=== PATIENT | female | born 1985 | race African-American/Black ===

== ENCOUNTER 2016-08-10 09:31 | Emergency (ER) | payer MEDICAID ==
[2016-08-10] MEDS ORDERED: ONDANSETRON 4 MG/2 ML VIAL IVP ONE (10:27)
[2016-08-10] MEDS ORDERED: NS 1,000 ML IV ONE (10:27)
[2016-08-10 10:36] VITALS: O2SAT 100
[2016-08-10 10:46] LABS: % IMMATURE GRANULYOCYTES 0.6 % (0.0-1.1); ABSOLUTE IMMATURE GRANULOCYTES 0.07 10^3/uL (0.00-0.10); ADD DIFF? NO; ADD MORPH? NO; ADD SCAN? NO; ATYPICAL LYMPHOCYTE FLAG 10 (0-99); FRAGMENT RBC FLAG 40 (0-99); HEMATOCRIT 30.6 % (38.0-47.0); HEMOGLOBIN 9.9 g/dL (12.6-16.3); LEFT SHIFT FLG 0 (0-99); LIPEMIA HEMOLYSIS FLAG 80 (0-99); MEAN CELL HEMOGLOBIN 23.2 pg (27.9-34.1); MEAN CELL HEMOGLOBIN CONCENTR. 32.4 g/dL (32.4-36.7); MEAN CELL VOLUME 71.7 fL (81.5-99.8); PLATELET CLUMPS FLAG 0 (0-99); PLATELET COUNT 325 10^3/uL (150-400); RED BLOOD CELL COUNT 4.27 10^6/uL (4.18-5.33); RED CELL DISTRIBUTION WIDTH 19.5 % (11.5-15.2)
--- NOTE | 2016-08-10 10:57 | EDPHY ---
H & P Time Seen by Provider: 08/10/16 10:15 HPI/ROS: CHIEF COMPLAINT: "I think I am having a sickle cell crisis and UTI" HISTORY OF PRESENT ILLNESS: The patient is a 31-year-old female with a history of sickle cell trait who presents to the emergency department stating she is in a crisis. She describes diffuse body aches and chills. She has increased frequency but no dysuria or hematuria. She denies abdominal pain. No nausea or vomiting. No fever. No back pain. No shortness of breath or chest pain. Patient has no leg pain or swelling. She states this is typical of her previous episodes. REVIEW OF SYSTEMS: My complete review of systems is negative except as mentioned in the HPI. Past Medical/Surgical History: Includes sickle cell trait Past surgical history: Negative Social history: The patient does not smoke use alcohol. Smoking Status: Current every day smoker Physical Exam: Vitals noted GENERAL: Well-appearing, in no acute distress, alert. HEENT: Eyes normal to inspection, normal pharynx, no signs of dehydration. NECK: No thyromegaly, no lymphadenopathy, supple. RESPIRATORY: Clear to auscultation bilaterally, no rales, rhonchi or wheezing. CVS: Regular rate and rhythm, no rubs, murmurs, or gallops. ABDOMEN: Soft, nontender, nondistended, no organomegaly. BACK: Normal to inspection, no CVA tenderness. SKIN: Normal color, no rash, warm, dry. No pallor. EXTREMITIES: No pedal edema, no calf tenderness, no Homans sign or cords, no joint swelling. NEURO/PSYCH: [Alert and oriented x3, normal mood and affect, normal motor sensory exam. Constitutional: Initial Vital Signs Temperature (C) 36.4 C 08/10/16 09:38 Heart Rate 93 08/10/16 09:38 Respiratory Rate 16 08/10/16 09:38 Blood Pressure 92/58 L 08/10/16 09:38 O2 Sat (%) 99 08/10/16 09:38 O2 Delivery Mode Room Air O2 (L/minute) 2 Allergies/Adverse Reactions: ibuprofen Allergy (Verified 08/10/16 09:37) Medical Decision Making ED Course/Re-evaluation: In the emergency department I discussed possible etiologies with the patient. An IV was placed. Patient was given normal saline 1 L IV for hydration. The patient was placed on oxygen 2 L via nasal cannula. She is given morphine 4 mg IV and Zofran 4 mg IV. Laboratory studies were obtained. Reviewed the patient's laboratory studies. White count was minimally elevated. Hematocrit was low at 30. There were no previous levels to compare. Patient was noted to have a positive test. I discussed this with the patient and answered all her questions. We are awaiting UA. Urine dip: Negative 1225: I rechecked the patient. She felt she was feeling better. She had clear breath sounds bilaterally. No signs of respiratory distress. Abdomen was soft, nontender nondistended. I discussed findings with the patient and answered all her questions. She is aware that she is needs close follow-up with the brushing operator. She is given contact information for primary care physician as well as obstetric. She will return with worsening symptoms. Differential Diagnosis: My differential includes but is not limited to sickle cell crisis, urinary tract infection, pyelonephritis, bacteremia, sepsis, acute chest, electrolyte abnormality, sugar abnormality, dehydration, anemia The patient was noted to be . She did not she was prior to arrival. On exam she has soft, nontender abdomen. 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 She will follow up with wildlife biology technician. Patient had no abdominal pain or discomfort on exam here. I do not feel she needs ultrasound imaging at this time. - Data Points Laboratory Results: Laboratory Results 08/10/16 10:36 08/10/16 10:36 08/10/16 08/10/16 08/10/16 12:24 10:36 10:36 WBC RBC Hgb Hct MCV MCH MCHC RDW Plt Count MPV Neut % (Auto) Lymph % (Auto) Coles % (Auto) Eos % (Auto) Baso % (Auto) Nucleat RBC Rel Count Absolute Neuts (auto) Absolute Lymphs (auto) Absolute Monos (auto) Absolute Eos (auto) Absolute Basos (auto) Absolute Nucleated RBC Immature Gran % Immature Gran # Sodium 138 mEq/L mEq/L (134-144) Potassium 4.4 mEq/L mEq/L (3.5-5.2) Chloride 107 mEq/L mEq/L (97-110) Carbon Dioxide 23 mEq/l mEq/l (22-31) Anion Gap 8 mEq/L mEq/L (8-16) BUN 7 mg/dL mg/dL (7-23) Creatinine 0.5 mg/dL L mg/dL (0.6-1.0) Estimated GFR > 60 Glucose 82 mg/dL mg/dL (70-100) Calcium 9.3 mg/dL mg/dL (8.5-10.4) Total Bilirubin 0.4 mg/dL mg/dL (0.1-1.4) Conjugated Bilirubin 0.3 mg/dL mg/dL (0.0-0.5) Unconjugated Bilirubin 0.1 mg/dL mg/dL (0.0-1.1) AST 15 IU/L IU/L (14-46) ALT 20 IU/L IU/L (9-52) Alkaline Phosphatase 76 IU/L IU/L (38-126) Total Protein 7.3 g/dL g/dL (6.3-8.2) Albumin 3.7 g/dL g/dL (3.5-5.0) Lipase 191.0 IU/L IU/L (23-300) Beta HCG, Qual POSITIVE Urine Color Pending Urine Appearance Pending Urine pH Pending Ur Specific Mullin Pending Urine Protein Pending Urine Ketones Pending Urine Blood Pending Urine Nitrate Pending Urine Bilirubin Pending Urine Urobilinogen Pending Ur Leukocyte Esterase Pending Ur Culture Indicated? Pending Urine Glucose Pending 08/10/16 10:36 WBC 11.26 10^3/uL H 10^3/uL (3.80-9.50) RBC 4.27 10^6/uL 10^6/uL (4.18-5.33) Hgb 9.9 g/dL L g/dL (12.6-16.3) Hct 30.6 % L % (38.0-47.0) MCV 71.7 fL L fL (81.5-99.8) MCH 23.2 pg L pg (27.9-34.1) MCHC 32.4 g/dL g/dL (32.4-36.7) RDW 19.5 % H % (11.5-15.2) Plt Count 325 10^3/uL 10^3/uL (150-400) MPV 10.0 fL fL (8.7-11.7) Neut % (Auto) 77.5 % H % (39.3-74.2) Lymph % (Auto) 15.4 % % (15.0-45.0) Coles % (Auto) 6.0 % % (4.5-13.0) Eos % (Auto) 0.2 % L % (0.6-7.6) Baso % (Auto) 0.3 % % (0.3-1.7) Nucleat RBC Rel Count 0.0 % % (0.0-0.2) Absolute Neuts (auto) 8.73 10^3/uL H 10^3/uL (1.70-6.50) Absolute Lymphs (auto) 1.73 10^3/uL 10^3/uL (1.00-3.00) Absolute Monos (auto) 0.68 10^3/uL 10^3/uL (0.30-0.80) Absolute Eos (auto) 0.02 10^3/uL L 10^3/uL (0.03-0.40) Absolute Basos (auto) 0.03 10^3/uL 10^3/uL (0.02-0.10) Absolute Nucleated RBC 0.00 10^3/uL 10^3/uL (0-0.01) Immature Gran % 0.6 % % (0.0-1.1) Immature Gran # 0.07 10^3/uL 10^3/uL (0.00-0.10) Sodium Potassium Chloride Carbon Dioxide Anion Gap BUN Creatinine Estimated GFR Glucose Calcium Total Bilirubin Conjugated Bilirubin Unconjugated Bilirubin AST ALT Alkaline Phosphatase Total Protein Albumin Lipase Beta HCG, Qual Urine Color Urine Appearance Urine pH Ur Specific Mullin Urine Protein Urine Ketones Urine Blood Urine Nitrate Urine Bilirubin Urine Urobilinogen Ur Leukocyte Esterase Ur Culture Indicated? Urine Glucose Medications Given: Discontinued Medications Sodium Chloride (Ns) 1,000 mls @ 0 mls/hr IV ONCE ONE PRN Reason: Wide Open Stop: 08/10/16 10:28 Last Admin: 08/10/16 10:59 Dose: 1,000 mls Morphine Sulfate (Morphine) 4 mg IVP EDNOW ONE Stop: 08/10/16 10:28 Last Admin: 08/10/16 10:58 Dose: 4 mg Morphine Sulfate (Morphine) 2 mg IVP EDNOW ONE Stop: 08/10/16 11:15 Last Admin: 08/10/16 11:14 Dose: 2 mg Ondansetron HCl (Zofran) 4 mg IVP EDNOW ONE Stop: 08/10/16 10:28 Last Admin: 08/10/16 10:58 Dose: 4 mg Departure - Departure Disposition: Home, Routine, Self-Care Clinical Impression: Sickle cell anemia with pain Qualifiers: Weeks of gestation: unspecified Qualified Code(s): Z33.1 - state, incidental Condition: Good Instructions: Sickle Cell Crisis (ED), (ED) Additional Instructions: You are . You need close follow up with obstetrics and your primary care doctor. You have been given contact [facility] with [facility] as well as the brushing operator. Return with increased pain, fever, vomiting or any other concerns. Referrals: Isabelle Shaw DO [Doctor of Osteopathy] - 2-3 days, if not improved [facility],. [Clinic] - 3-4 days, if not improved
[2016-08-10 11:01] LABS: ALANINE AMINOTRANSFERASE 20 IU/L (9-52); ALBUMIN 3.7 g/dL (3.5-5.0); ALKALINE PHOSPHATASE 76 IU/L (38-126); ANION GAP 8 mEq/L (8-16); ASPARTATE AMINOTRANSFERASE 15 IU/L (14-46); BILIRUBIN,TOTAL 0.4 mg/dL (0.1-1.4); BILIRUBIN-CONJUGATED 0.3 mg/dL (0.0-0.5); BILIRUBIN-UNCONJUGATED 0.1 mg/dL (0.0-1.1); CALCIUM 9.3 mg/dL (8.5-10.4); CARBON DIOXIDE 23 mEq/l (22-31); CHLORIDE 107 mEq/L (97-110); CREATININE 0.5 mg/dL (0.6-1.0); GLOMERULAR FILTRATION RATE > 60; GLUCOSE 82 mg/dL (70-100); POTASSIUM 4.4 mEq/L (3.5-5.2); SODIUM 138 mEq/L (134-144); TOTAL PROTEIN 7.3 g/dL (6.3-8.2)
[2016-08-10 12:33] VITALS: BP 107/65; PULSE 70; RESP 18; TEMP 98.2
[2016-08-10 12:53] LABS: COLOR YELLOW; LEUKOCYTE ESTERASE,URINE TRACE (NEGATIVE); NITRITE,URINE POSITIVE (NEGATIVE)
[2016-08-10 13:04] LABS: BACTERIA TRACE /hpf (NONE SEEN)
== END 2016-08-10 12:44 | disposition home or self-care (01) ==
DX: R52 Pain, unspecified (principal); D57.219 Sickle-cell/Hb-C disease with crisis, unspecified; F17.200 Nicotine dependence, unspecified, uncomplicated; Z33.1 Pregnant state, incidental
CPT/HCPCS: 96374; J2405